=== PATIENT | female | born 1975 | race Caucasian/White ===

== ENCOUNTER 2017-05-12 16:57 | Outpatient (CLI) | payer BC ==
[2016-03-14 07:32] VITALS: BMI 33.0
[~2017-05-12 16:57] MED LIST: ALDACTONE50 MG PO; BUSPAR10 MG PO; DESERYL100 MG PO; DYAZIDE 37.5/251 CAP PO; DYRENIUM50 MG PO; IBUPROFEN600 MG PO; KLONOPIN0.5 MG PO; MELATONIN 10 M1 EACH PO; PERCOCET 5-3251 TAB PO
== END 2017-05-12 23:59 | disposition home or self-care (01) ==
LOC: D.MAMMO 16:57
DX: Z12.31 Encounter for screening mammogram for malignant neoplasm of breast (principal)

== ENCOUNTER → 2018-07-05 17:00 | Outpatient (CLI) | payer BC ==
[2016-03-14 07:32] VITALS: BMI 33.0
== END | disposition home or self-care (01) ==
LOC: D.MAMMO 15:30
DX: Z12.31 Encounter for screening mammogram for malignant neoplasm of breast (principal)

== ENCOUNTER → 2019-04-03 08:17 | Outpatient (CLI) | payer BC ==
[2016-03-14 07:32] VITALS: BMI 33.0
[~2019-04-03 08:17] MED LIST changes: +ADIPEX-P37.5 M1 PO; +BUPRENORPHINE; +BUTRANS1 EAC3 TRANSDERM; +CLOBETASOL PROP50 ML TOPICAL; +CYCLOBENZAPRINE10 MG PO; +DILAUDID4 MG PO; +ESTRACE 0.0142.5 GM; +ESTRACE 0.0142.5 GM VG; +LINZESS145 MCG PO; +OMEPRAZOLE40 MG PO; +SOMA350 MG PO
== END | disposition home or self-care (01) ==
LOC: D.US 08:17
PROVIDERS: ATTEND Internal Medicine Gastroenterology
DX: R10.9 Unspecified abdominal pain (principal); R11.0 Nausea

== ENCOUNTER 2019-05-01 07:14 | Day surgery (SDC) | payer BC ==
[~2019-05-01] VITALS: Ht 167.6 cm; Wt 79.4 kg
[~2019-05-01 07:14] MED LIST changes: -BUPRENORPHINE; -DILAUDID4 MG PO; -ESTRACE 0.0142.5 GM; -ESTRACE 0.0142.5 GM VG
[2019-05-01 07:33] LABS: BASOPHILS 0.2 % (0-2); EOSINOPHILS 3.7 % (0-7); HEMATOCRIT 42.5 % (36.0-48.0); HEMOGLOBIN 14.1 g/dL (12-16); IMMATURE GRANULOCYTES 0.4 % (0-5); LYMPHOCYTES 16.9 % (15-50); MCHC 33.2 g/dL (31.0-37.0); MCV 96.4 fL (80.0-100.0); MEAN PLATELET VOLUME 9.4 fL (7.4-10.4); MONOCYTES 6.4 % (2-11); NEUTROPHILS 72.4 % (40-80); PLATELET COUNT 324 10x3/uL (130-400); RBC 4.41 10x6/uL (4.00-5.40); RDW 12.7 % (11.5-14.5); WBC 10.9 10x3/uL (4.8-10.8)
[2019-05-01 07:50] LABS: CALC OSMOLALITY 274 mosm/kg (275-300); CARBON DIOXIDE 26.6 mmol/L (21.0-32.0); CHLORIDE - SERUM 103 mmol/L (98-107); CREATININE - SERUM 0.5 mg/dL (0.6-1.3); GLUCOSE 97 mg/dL (74-106); POTASSIUM - SERUM 3.7 mmol/L (3.5-5.1); SODIUM 139 mmol/L (136-145); UREA NITROGEN 5 mg/dL (7-18); eGFR NON AFRICAN AMERICAN > 90 mL/min (90-120)
[2019-05-01] MEDS ORDERED: BUPRENORPHINE (07:54)
[2019-05-01] MEDS ORDERED: ESTRACE 0.0142.5 GM (07:55)
[2019-05-01] MEDS ORDERED: ESTRACE 0.0142.5 GM VG (07:55)
[2019-05-01 08:00] VITALS: BP 112/63; Ht 167.6 cm; Wt 79.4 kg
[2019-05-01 08:08] LABS: HCG URINE NEGATIVE (NEGATIVE)
[2019-05-01] MEDS ORDERED: DILAUDID4 MG PO (09:54)
--- NOTE | 2019-05-01 11:09 | NUR ---
1040-REC'D FROM RR. AWAKE AND ALERT. REPORTS PAIN 5/10 WITH HISTORY OF CHRONIC PAIN AND WEARS A PAIN PATCH. STERI STRIPS TO ABD X 4 AREAS CDI. VSS. FAMILY AT BEDSIDE.
--- NOTE | 2019-05-01 11:10 | NUR ---
1046-FULL LIQUID TRAY TO ROOM
--- NOTE | 2019-05-01 13:02 | NUR ---
1200-DISCHARGE CRITERIA MET. REMOVED IV WITH CATH INTACT,DISPOSED INTO SHARPS. COVERED SITE WITH BANDAID. REVIEWED POST OPERATIVE INSTRUCTIONS WITH PT. VERBALIZED UNDERSTANDING. ESCORTED OUT VIA W/C WITH MOTHER AWAITING TO DRIVE HOME.
== END 2019-05-01 12:00 | disposition home or self-care (01) ==
LOC: D.OPS 07:14 → D.PAN 09:15 → D.OPS 12:00
PROVIDERS: Anesthesiology; ATTEND Surgery
DX: K80.80 Other cholelithiasis without obstruction (principal)

== ENCOUNTER → 2019-06-25 09:50 | Outpatient (CLI) | payer BC ==
[2019-05-01 08:00] VITALS: BMI 28.3
[~2019-06-25 09:50] MED LIST changes: +BUPRENORPHINE; +DILAUDID4 MG PO; +ESTRACE 0.0142.5 GM; +ESTRACE 0.0142.5 GM VG
[2019-06-25 10:21] LABS: ALBUMIN 3.4 g/dL (3.4-5.0); BILIRUBIN - DIRECT 0.08 mg/dL (0.00-0.30); BILIRUBIN - INDIRECT 0.16 mg/dL (0.00-1.00); BILIRUBIN - TOTAL 0.24 mg/dL (0.2-1.3); PROTEIN - SERUM 7.2 g/dL (6.4-8.2)
== END | disposition home or self-care (01) ==
LOC: D.LAB 09:50
PROVIDERS: ATTEND Internal Medicine Gastroenterology
DX: K76.0 Fatty (change of) liver, not elsewhere classified (principal); R74.8 Abnormal levels of other serum enzymes

== ENCOUNTER → 2020-12-07 07:38 | Outpatient (CLI) | payer BC ==
[2019-05-01 08:00] VITALS: BMI 28.3
[2020-12-07 08:18] LABS: ALBUMIN 3.4 g/dL (3.4-5.0); BILIRUBIN - DIRECT 0.11 mg/dL (0.00-0.30); BILIRUBIN - INDIRECT 0.19 mg/dL (0.00-1.00); BILIRUBIN - TOTAL 0.3 mg/dL (0.2-1.3); PROTEIN - SERUM 6.9 g/dL (6.4-8.2)
== END | disposition home or self-care (01) ==
LOC: D.US 12-02 08:30
PROVIDERS: ATTEND Internal Medicine Gastroenterology
DX: K76.0 Fatty (change of) liver, not elsewhere classified (principal)